=== PATIENT | female | born 1950 | race Caucasian/White ===

== ENCOUNTER → 2023-01-03 | Outpatient (CLI) | payer MEDICARE ==
--- NOTE | 2023-01-06 10:37 | MM ---
Reason for Exam: Screening (asymptomatic). Last mammogram was performed 24 year(s) and 11 month(s) ago. Patient History: Menarche at age 11. First Full-Term at age 21. Left ovary removed at age 47. Right ovary removed at age 47. Postmenopausal. 09/01/1998, Benign Excisional Biopsy on the left side. Risk Values: Hafsa 5 year model risk: 1.9%. NCI Lifetime model risk: 4.6%. Prior Study Comparison: 01/19/1998 Bilateral Special View Mammogram, [facility]. 02/24/1998 Left Diagnostic Mammogram, [facility]. 07/28/1998 Left Special View Mammogram, [facility]. Tissue Density: There are scattered fibroglandular densities. Findings: Analyzed By CAD. Pattern appears symmetrical. There is a 0.7 cm oval density with circumscribed margins in the lower inner aspect right breast 9 cm the nipple. Additional evaluation with ultrasound is recommended. There are some grouped calcifications in the outer right breast on the cranial caudal projection. Magnification view is recommended. No suspicious changes within the left breast No suspicious groups of microcalcifications, spiculated or lobular masses, architectural distortion or other secondary signs of malignancy are mammographically apparent. Overall Assessment: Incomplete: need additional imaging evaluation, BI-RAD 0 Management: Diagnostic Mammogram of the right breast. Diagnostic Breast Ultrasound of the right breast. A negative mammogram report should not preclude additional follow up of suspicious palpable abnormalities. Patient should continue monthly self breast exam. A clinical breast exam by your physician is recommended on an annual basis and results should be correlated with mammographic findings. Electronically signed and approved by: Raj Haque D.O. Radiologis
== END | disposition home or self-care (01) ==
LOC: RADMAMWWP 13:32
PROVIDERS: ATTEND Family Medicine
DX: Z12.31 Encounter for screening mammogram for malignant neoplasm of breast (principal); Z78.0 Asymptomatic menopausal state
CPT/HCPCS: 77063; 77067

== ENCOUNTER → 2023-01-10 | Outpatient (CLI) | payer MEDICARE ==
--- NOTE | 2023-01-10 14:36 | MM ---
Reason for Exam: Additional evaluation requested from abnormal screening. Last screening mammogram was performed less than 1 month ago. Patient History: Menarche at age 11. First Full-Term at age 21. Left ovary removed at age 47. Right ovary removed at age 47. Postmenopausal. Patient used Hormonal Contraceptives for 2 years. 09/01/1998, Benign Excisional Biopsy on the left side. Risk Values: Hafsa 5 year model risk: 1.9%. NCI Lifetime model risk: 4.6%. Prior Study Comparison: 01/19/1998 Bilateral Special View Mammogram, [facility]. 01/30/1998 Left Diagnostic Ultrasound, [facility]. 02/24/1998 Left Diagnostic Mammogram, [facility]. 07/28/1998 Left Special View Mammogram, [facility]. 01/03/2023 Bilateral MG 3D screening mammo w/cad, [facility]. Tissue Density: Right: There are scattered fibroglandular densities. Findings: Analyzed By CAD. A heterogeneous 2 to 3 mm group of calcifications in the middle to posterior depth outer upper aspect remains present on additional views. Overall Assessment: Suspicious, BI-RAD 4 Management: Stereotactic Core Biopsy of the right breast. . Results were given to the patient verbally at the time of exam. Patient should continue monthly self-breast exams. A clinical breast exam by your physician is recommended on an annual basis. This exam should not preclude additional follow-up of suspicious palpable abnormalities. Note on Hafsa scores and lifetime risk: 1. A Hafsa score greater than 3% is considered moderate risk. If this is the case, consider specialist referral to assess eligibility for a risk reducing agent. 2. If overall lifetime risk for the development of breast cancer is 20% or higher, the patient may qualify for future screening with alternating mammogram and breast MRI. Electronically signed and approved by: Simón Villa M.D.
--- NOTE | 2023-01-10 15:07 | USB ---
Reason for Exam: Additional evaluation requested from abnormal screening. Patient History: Menarche at age 11. First Full-Term at age 21. Left ovary removed at age 47. Right ovary removed at age 47. Postmenopausal. Patient used Hormonal Contraceptives for 2 years. 09/01/1998, Benign Excisional Biopsy on the left side. Risk Values: Hafsa 5 year model risk: 1.9%. NCI Lifetime model risk: 4.6%. Technique: Method: Targeted. Prior Study Comparison: 02/24/1998 Left Diagnostic Mammogram, [facility]. 07/28/1998 Left Special View Mammogram, [facility]. 01/03/2023 Bilateral MG 3D screening mammo w/cad, [facility]. Findings: The lower inner quadrant of the right breast, the axilla of the right breast and the retroareolar of the right breast were scanned. Targeted ultrasound shows a 8 x 7 x 8 mm oval hypoechoic lesion at 3:00 position 3 cm distance from nipple possibly could correspond to recent concern on mammogram but this is slightly farther from the nipple on mammogram. Would advise sampling with clip placement and follow-up mammogram to correlate. Overall Assessment: Suspicious, BI-RAD 4 Management: Ultrasound Core Biopsy of the right breast. Tissue sampling is advised. Results were given to the patient verbally at the time of exam. Electronically signed and approved by: Simón Villa M.D.
== END | disposition home or self-care (01) ==
LOC: RADMAMWWP 13:29
PROVIDERS: ATTEND Family Medicine
DX: R92.8 Other abnormal and inconclusive findings on diagnostic imaging of breast (principal); Z78.0 Asymptomatic menopausal state
CPT/HCPCS: 77065; 76642; G0279; 77061

== ENCOUNTER → 2023-02-14 | Outpatient (CLI) | payer MEDICARE ==
--- NOTE | 2023-02-17 14:02 | BD ---
EXAMINATION TYPE: Axial Bone Density DATE OF EXAM: 02/14/2023 CLINICAL HISTORY: 72 years old Female. ICD-10 CODE: Z13.820 Height: 62 Weight: 261.6 FRAX RISK QUESTIONS: Alcohol (3 or more units per day): no Family History (Parent hip fracture): no Glucocorticoids (More than 3mos): no (Ex: prednisone, prednisolone, methylprednisolone, dexamethasone, and hydrocortisone). History of Fracture in Adulthood: yes Secondary Osteoporosis: 1. Type 1 Diabetes: no 2. Hyperthyroidism: no 3. Menopause before 45: no 4. Malnutrition: no 5. Chronic liver disease: no Rheumatoid Arthritis: no Current Tobacco Use: no RISK FACTORS HISTORY OF: Surgery to Spine/Hip(right/left)/Wrist (right/left): no Family History of Osteoporosis: no Active: no Diet low in dairy products/other sources of calcium: yes Postmenopausal woman: yes Lost more than 2 inches in height since high school: no MEDICATIONS: Additional History: EXAM MEASUREMENTS: Bone mineral densitometry was performed using the [employer] System. Bone mineral density as measured about the Lumbar spine is: ----- L1-L4(G/cm2): 1.215 T Score Values are as follows: ----- L1: -.04 ----- L2: 0.2 ----- L3: 0.6 ----- L4: 0.6 ----- L1-L4: 0.3 Z Score Values are as follows: ----- L1: 0.2 ----- L2: 0.7 ----- L3: 1.1 ----- L4: 1.1 ----- L1-L4:0.9 Bone mineral density : baseline Bone mineral density about the R hip (g/cm2): 0.947 Bone mineral density about the L hip (g/cm2): 0.919 T Score values are as follows: -----R Neck: -1.2 -----L Neck: -2.2 -----R Total: -0.5 -----L Total: -0.7 Z Score values are as follows: -----R Neck: -0.1 -----L Neck: -1.1 -----R Total: 0.3 -----L Total: 0.1 Bone mineral density : baseline FRAX%s: The graph provided illustrates a 17.6% chance for a major osteoporotic fx and a 3.9% chance f or the hips probability for fx in 10 years time. IMPRESSION: Osteopenia (T Score between -2.5 and -1). There is slightly increased risk of fracture and the patient may be considered for treatment. Re-Screen 2-5 years. NOTE: T-SCORE=SD OF THE YOUNG ADULT MEAN.
== END | disposition home or self-care (01) ==
LOC: RADBDWWP 15:19
PROVIDERS: ATTEND Family Medicine
DX: Z13.820 Encounter for screening for osteoporosis (principal); M85.89 Other specified disorders of bone density and structure, multiple sites
CPT/HCPCS: 77080

== ENCOUNTER → 2023-02-28 | Day surgery (SDC) | payer MEDICARE ==
--- NOTE | 2023-03-07 14:15 | MM ---
Risk Values: Hafsa 5 year model risk: 1.9%. NCI Lifetime model risk: 4.6%. Prior Study Comparison: 07/28/1998 Left Special View Mammogram, [facility]. 01/03/2023 Bilateral MG 3D screening mammo w/cad, [facility]. 01/10/2023 Right MG 3D work up w/cad RT, [facility]. Pathology Description: Approach: Lateral to Medial Needle Type: Eviva Cores: 6 Skin Nicks: 1 Gauge: 9 The calcifications in question within the right breast were targeted by the undersigned. Procedure was performed by the undersigned. Informed consent was obtained and all of the patients questions were answered. The standard sterile technique was utilized and appropriate local anesthesia was obtained with 1% lidocaine. Mammotome probe was advanced and multiple core samples were obtained and sent to pathology for interpretation. Microclip marker was deployed at the site of biopsy. Post procedural mammogram demonstrates appropriate deployment of radiopaque clip marker. The patient tolerated the procedure well and left the department in stable condition. Pathology results are pending. Impression: Successful stereotactic core biopsy right breast. Pathology Results: Result: Benign, Fibrocystic change. RIGHT BREAST, STEREOTACTIC CORE BIOPSY: Fibrocystic change with columnar cell change, usual ductal hyperplasia, and focal fibroadenomatoid stromal hyperplasia with microcalcification. Current specimen negative for diagnostic in situ or invasive carcinoma. Overall Assessment: Benign Management: Diagnostic Mammogram of the right breast in 6 months. Electronically signed and approved by: Terry Gonzalez M.D. Radiologis
--- NOTE | 2023-03-07 14:19 | USB ---
Risk Values: Hafsa 5 year model risk: 2.4%. NCI Lifetime model risk: 5.8%. Prior Study Comparison: 07/28/1998 Left Special View Mammogram, [facility]. 01/03/2023 Bilateral MG 3D screening mammo w/cad, [facility]. 01/10/2023 Right MG 3D work up w/cad RT, [facility]. 01/10/2023 Right US breast workup limited RT, [facility]. Pathology Description: Location: 3 o'clock. Marker Left Behind. Needle Type: Celero Cores: 1 Gauge: 12 The procedure of ultrasound guided core biopsy was explained to the patient. Benefits, alternatives, and risks were discussed. An informed consent was then obtained. The patient was placed in supine positioning for imaging and for the procedure. The overlying skin was prepped and draped in usual sterile fashion. Lidocaine buffered with bicarbonate was used as anesthetic into the skin and subcutaneous tissue up to area of concern in the right 3:00 breast. Under ultrasound guidance, a 12-gauge vacuum assisted biopsy gun device was used to obtain one core sample. The lesion was no longer present. Following this, a biopsy clip was left in lesion. The patient tolerated the procedure well without any immediate complication. The patient was kept in the radiology department for short stay after the procedure and then discharged home in stable condition. Postprocedure mammogram: The patient was transferred to mammography for physician ordered post procedure mammogram for clip placement verification. Impression: Successful, uncomplicated ultrasound guided core biopsy of area of concern in the right 3:00 breast, full pathology results to follow. Pathology Results: Result: Benign, Fibrocystic change. RIGHT BREAST, DESIGNATED THREE O'CLOCK POSITION, ULTRASOUND GUIDED NEEDLE CORE BIOPSY: Proliferative fibrocystic change with fragmented ductal cyst having ductal ectasia, apocrine metaplasia, columnar cell change, and focal florid usual ductal hyperplasia. See note. Notes Per EMR: It is noted there is a 0.7cm oval circumscribed density within the right breast. Correlation with a concurrent right stereotactic biopsy having calcifications in [id number] is suggested. Correlation with imaging studies is suggested, as indicated. Overall Assessment: Benign Management: Diagnostic Mammogram of the right breast in 6 months. Electronically signed and approved by: Terry Gonzalez M.D. Radiologis
== END ==
LOC: RADMAMWWP 07:27
PROVIDERS: ATTEND Surgery
DX: N60.21 Fibroadenosis of right breast (principal)
CPT/HCPCS: 88305; 19081; 19083; A4648 ×2

== ENCOUNTER → 2023-02-28 | Day surgery (SDC) | payer MEDICARE | LOC: RADUSWWP 10:30 | PROVIDERS: ATTEND Surgery | DX: N60.41 Mammary duct ectasia of right breast (principal); N60.81 Other benign mammary dysplasias of right breast | CPT/HCPCS: 88305 ==

== ENCOUNTER 2024-02-05 20:20 | Emergency (ER) | payer MEDICARE ==
[2024-02-05 20:25] VITALS: RESP 18
[2024-02-05] MEDS: KETOROLAC 15 MG/ML 1 ML VIAL IM STA (20:46)
--- NOTE | 2024-02-05 20:46 | ED ---
Back Pain HPI - General Chief Complaint: Back Pain/Injury Stated Complaint: Slip and fall Time Seen by Provider: 02/05/24 20:25 Source: patient, EMS, RN notes reviewed Limitations: no limitations - History of Present Illness Initial Comments: 73-year-old female presents emergency department chief complaint of back pain. Patient states that she slept on her 's ER and states that she fell onto her knees falling forward drying her back. Patient complains of thoracic back pain, rib pain and mild right hip pain. Patient no head injury no loss conscious patient did receive fentanyl by EMS which helped the pain some. - Related Data Home Medications Medication Instructions Recorded Confirmed amLODIPine [Norvasc] 10 mg PO DAILY 02/12/23 03/21/23 Calcium Carbonate [Calcium] 600 mg PO DAILY 03/21/23 03/21/23 Cholecalciferol [Vitamin D3 (25 50 mcg PO DAILY 03/21/23 03/21/23 Mcg = 1000 Iu)] Allergies Allergy/AdvReac Type Severity Reaction Status Date / Time codeine Allergy Unknown Verified 02/05/24 20:26 erythromycin base Allergy Unknown Verified 02/05/24 20:26 Penicillins Allergy Unknown Verified 02/05/24 20:26 Sulfa (Sulfonamide Allergy Unknown Verified 02/05/24 20:26 Antibiotics) Review of Systems ROS Statement: Those systems with pertinent positive or pertinent negative responses have been documented in the HPI. ROS Other: All systems not noted in ROS Statement are negative. Past Medical History Past Medical History: Hypertension History of Any Multi-Drug Resistant Organisms: None Reported Past Surgical History: Cholecystectomy, Hysterectomy Past Psychological History: No Psychological Hx Reported Smoking Status: Never smoker Past Alcohol Use History: None Reported Past Drug Use History: None Reported General Exam Limitations: no limitations General appearance: alert, in no apparent distress Head exam: Present: atraumatic, normocephalic, normal inspection Eye exam: Present: normal appearance, PERRL, EOMI. Absent: scleral icterus, conjunctival injection, periorbital swelling Neck exam: Present: normal inspection, full ROM. Absent: tenderness, menin gismus, lymphadenopathy Respiratory exam: Present: normal lung sounds bilaterally. Absent: respiratory distress, wheezes, rales, rhonchi, stridor Cardiovascular Exam: Present: regular rate, normal rhythm, normal heart sounds. Absent: systolic murmur, diastolic murmur, rubs, gallop, clicks GI/Abdominal exam: Present: soft, normal bowel sounds. Absent: distended, tenderness, guarding, rebound, rigid Extremities exam: Present: normal inspection, full ROM, normal capillary refill. Absent: tenderness, pedal edema, joint swelling, calf tenderness Back exam: Present: full ROM, tenderness, paraspinal tenderness, vertebral tenderness (Thoracic) Neurological exam: Present: alert, oriented X3, CN II-XII intact, reflexes normal. Absent: motor sensory deficit Course Vital Signs 02/05/24 20:23 Temperature 97.8 F Pulse Rate 74 Respiratory 18 Rate Blood Pressure 145/73 O2 Sat by Pulse 94 L Oximetry Medical Decision Making - Medical Decision Making Was pt. sent in by a medical professional or institution (, PA, [employer], urgent care, hospital, or prison...) When possible be specific @ -No Did you speak to anyone other than the patient for history (EMS, parent, family, police, friend...)? What history was obtained from this source @ -No Did you review nursing and triage notes (agree or disagree)? Why? @ -I reviewed and agree with nursing and triage notes Were old charts reviewed (outside hosp., previous admission, EMS record, old EKG, old radiological studies, urgent care reports/EKG's, prison records)? Report findings @ -No old charts were reviewed Differential Diagnosis (chest pain, altered mental status, abdominal pain women, abdominal pain men, vaginal bleeding, weakness, fever, dyspnea, syncope, he adache, dizziness, GI bleed, back pain, seizure, CVA, palpatations, mental health, musculoskeletal)? @ -Fall, back fracture, strain, rib fracture EKG interpreted by me (3pts min.). @ -None X-rays interpreted by me (1pt min.). @ -Chest x-ray 1 view chest no acute cardiopulmonary process X-ray thoracic spine no acute fracture visualized X-ray pelvis no acute fracture CT interpreted by me (1pt min.). @ -None done U/S interpreted by me (1pt. min.). @ -None done What testing was considered but not performed or refused? (CT, X-rays, U/S, labs)? Why? @ -None What meds were considered but not given or refused? Why? @ -None Did you discuss the management of the patient with other professionals (professionals i.e. , PA, [employer], lab, RT, psych nurse, licensed social worker, professor of rhetoric, teacher, first officer and flight instructor, case picker)? Give summary @ -No Was smoking cessation discussed for >3mins.? @ -No Was critical care preformed (if so, how long)? @ -No Were there social determinants of health that impacted care today? How? (Homelessness, low income, unemployed, alcoholism, drug addiction, transportation, low edu. Level, literacy, decrease access to med. care, half-way, rehab)? @ -No Was there de-escalation of care discussed even if they declined (Discuss DNR or withdrawal of care, Hospice)? DNR status @ -No What co-morbidities impacted this encounter? (DM, HTN, Smoking, COPD, CAD, Cancer, CVA, ARF, Chemo, Hep., AIDS, mental health diagnosis, sleep apnea, morbid obesity)? @ -None Was patient admitted / discharged? Hospital course, mention meds given and route, prescriptions, significant lab abnormalities, going to OR and other pertinent info. @ -[Discharge patient presented for a fall. Patient has no acute fractures. Patient discharged in stable condition Undiagnosed new problem with uncertain prognosis? @ -No Drug Therapy requiring intensive monitoring for toxicity (Heparin, Nitro, Insulin, Cardizem)? @ -No Were any procedures done? @ -No Diagnosis/symptom? @Fall, back pain Acute, or Chronic, or Acute on Chronic? @ -Acute Uncomplicated (without systemic symptoms) or Complicated (systemic symptoms)? @ -Uncomplicated Side effects of treatment? @ -No Exacerbation, Progression, or Severe Exacerbation? @ -No Poses a threat to life or bodily function? How? (Chest pain, USA, SD, pneumonia, PE, COPD, DKA, ARF, appy, cholecystitis, CVA, Diverticulitis, Homicidal, Suicidal, threat to staff... and all critical care pts) @ -No Disposition Clinical Impression: Thoracic back pain, Fall Disposition: HOME SELF-CARE Condition: Stable Instructions (If sedation given, give patient instructions): Back Pain (ED) Additional Instructions: Please return to the Emergency Department if symptoms worsen or any other concerns. Is patient prescribed a controlled substance at d/c from ED?: No Referrals: Dieter Mann DO [Primary Care Provider] - 1-2 days Time of Disposition: 22:34
--- NOTE | 2024-02-05 21:38 | XR ---
EXAMINATION TYPE: XR chest 1V DATE OF EXAM: 02/05/2024 9:06 PM CLINICAL INDICATION:Female, 73 years old with history of shortness of breath COMPARISON: None TECHNIQUE: XR chest 1V Frontal view of the chest. FINDINGS: There is interstitial reticular and patchy airspace opacities or pronounced in the right lung. There is poor visualization of the bilateral sulci. The left appears to be obscured. The cardiac silhouette is enlarged. No acute osseous syndrome allergies. No pneumothorax. IMPRESSION: Cardiomegaly and mild pulmonary vascular congestion with patchy airspace disease. Findings may relate to congestive heart failure versus acute infectious/inflammatory.
--- NOTE | 2024-02-05 22:10 | XR ---
EXAMINATION TYPE: XR pelvis AP view DATE OF EXAM: 02/05/2024 9:06 PM CLINICAL INDICATION:Female, 73 years old with history of fall pain; [facility] COMPARISON: None TECHNIQUE: XR pelvis AP view, examined in a single projection. FINDINGS: No gross evidence for acute fracture on exam. There is poor penetration due to patient's case dy habitus making evaluation. There is degenerative changes of the left greater trochanter with some cortical irregularity appreciated. Degenerative changes of bony pelvis and bilateral hips with no leandro dence for dislocation. IMPRESSION: Degenerative changes of the bilateral hips and bony pelvis with no definitive evidence for fracture o n this limited evaluation. Correlate for point tenderness along the left hip. If clinical concern for fracture persists consider further characterization with CT pelvis.
--- NOTE | 2024-02-05 22:16 | XR ---
EXAMINATION TYPE: XR thoracic spine 2V DATE OF EXAM: 02/05/2024 9:06 PM CLINICAL INDICATION:Female, 73 years old with history of fall pain. COMPARISON: Chest radiograph from the same day TECHNIQUE: XR thoracic spine 2V views of the spine in Frontal and lateral projections. FINDINGS: No evidence of acute fracture. There is no evidence of disk space narrowing or loss of vertebral bod y height in the visualized thoracic spine. There is normal alignment of the visualized thoracic verte bral bodies. There is poor visualization of the upper thoracic spine and lower cervical spine. IMPRESSION: 1. No acute osseous pathology. Please see chest radiograph from the same day for further details. 2. Poor visualization of the upper thoracic and lower cervical spine. Correlate with any point tender ness. If clinical concern for fracture persists consider CT spine for further evaluation.
[2024-02-05] MEDS: LIDOCAINE 4% PATCH TOPICAL ONE (23:06)
[2024-02-05 23:29] VITALS: BP 140/71; PULSE 75; TEMP 97.9
== END 2024-02-05 23:29 | disposition home or self-care (01) ==
LOC: EC 20:20
DX: M54.6 Pain in thoracic spine (principal); Z88.2 Allergy status to sulfonamides; Z88.5 Allergy status to narcotic agent; Z88.1 Allergy status to other antibiotic agents; Z88.0 Allergy status to penicillin; W01.0XXA Fall on same level from slipping, tripping and stumbling without subsequent striking against object, initial encounter
CPT/HCPCS: 72070; 72170; 71045; 99284; 96372; J1885

== ENCOUNTER 2024-05-02 14:14 | Emergency (ER) | payer MEDICARE ==
--- NOTE | 2024-05-02 14:50 | ED ---
Fall HPI - General Source: patient, RN notes reviewed Mode of arrival: wheelchair Limitations: physical limitation - History of Present Illness MD Complaint: fall Onset/Timin Time: 13:00 Fall From: standing When Fall Occurred: 1-3 hours [employer] Fall Witnessed: yes, by family Place Fall Occurred: home Loss of Consciousness: none Prolonged Down Time?: no Symptoms Prior to Fall: none Location: head, pelvis Location - Extremities: Left: Hand Severity scale (1-10): 8 Context: tripped/slipped Associated Symptoms: other (Transient dizziness after fall) <Zach Morse - Last Filed: 05/02/24 14:46> <Luis Villegas - Last Filed: 05/02/24 20:26> - General Stated Complaint: Fall- R hand/hip injury Time Seen by Provider: 05/02/24 14:28 - History of Present Illness Initial Comments: Quick note: This is a 74-year-old female presenting for a trip and fall over a box at 1 PM today. Patient states she accidentally tripped over a box falling forward and striking the right side of her head, right hand and right hip onto a tile floor with associated pain. Patient endorses transient dizziness following the fall. Patient denies loss of consciousness, neck pain, visual changes, N/V, altered mental status, altered LOC. Patient states she suffered a cut near her right eye and is having right hand pain (10 out of 10) and right hip pain (8 out of 10). Patient endorses use of Tylenol prior to ER arrival. (Zach Morse) Agree with above. Patient is not on blood thinners. (Luis Villegas) - Related Data Home Medications Medication Instructions Recorded Confirmed amLODIPine [Norvasc] 10 mg PO DAILY 02/12/23 03/21/23 Calcium Carbonate [Calcium] 600 mg PO DAILY 03/21/23 03/21/23 Cholecalciferol [Vitamin D3 (25 50 mcg PO DAILY 03/21/23 03/21/23 Mcg = 1000 Iu)] Allergies Allergy/AdvReac Type Severity Reaction Status Date / Time codeine Allergy Unknown Verified 05/02/24 15:56 erythromycin base Allergy Unknown Verified 05/02/24 15:56 Penicillins Allergy Unknown Verified 05/02/24 15:56 Sulfa (Sulfonamide Allergy Unknown Verified 05/02/24 15:56 Antibiotics) Review of Systems ROS Other: All systems not noted in ROS Statement are negative. <Zach Morse - Last Filed: 05/02/24 14:46> ROS Other: All systems not noted in ROS Statement are negative. <Luis Villegas - Last Filed: 05/02/24 20:26> ROS Statement: Those systems with pertinent positive or pertinent negative responses have been documented in the HPI. Past Medical History Past Medical History: Hypertension History of Any Multi-Drug Resistant Organisms: None Reported Past Surgical History: Cholecystectomy, Hysterectomy Past Psychological History: No Psychological Hx Reported Smoking Status: Never smoker Past Alcohol Use History: None Reported Past Drug Use History: None Reported <Zach Morse - Last Filed: 05/02/24 14:46> General Exam <Zach Morse - Last Filed: 05/02/24 14:46> General appearance: alert, in no apparent distress Head exam: Present: normocephalic Expanded Head exam: Present: abrasion (Small skin avulsion. The right eyebrow) Eye exam: Present: PERRL, EOMI, periorbital swelling. Absent: periorbital tenderness Neck exam: Present: normal inspection, full ROM. Absent: meningismus Respiratory exam: Absent: respiratory distress Cardiovascular Exam: Present: regular rate Right Hand Wrist exam: Present: full ROM, tenderness, swelling, ecchymosis Neurological exam: Present: alert, oriented X3 Psychiatric exam: Present: normal affect, normal mood Skin exam: Present: warm, dry <Luis Villegas - Last Filed: 05/02/24 20:26> - General Exam Comments Initial Comments: Visual Physical Exam Vital signs reviewed General: Well-appearing, nontoxic, no acute distress. Head: Normocephalic vertical laceration with dried blood noted on lateral aspect of right eye Eyes: PERRLA, EOMI ENT: Airway patent Chest: Nonlabored breathing Skin: No visual rash, normal skin tone Neuro: Alert and oriented 3 Musculoskeletal: No gross abnormalities (Zach Morse) Course Vital Signs 05/02/24 05/02/24 15:56 17:18 Temperature 97.9 F 97.9 F Pulse Rate 78 77 Respiratory 18 18 Rate Blood Pressure 146/75 148/74 O2 Sat by Pulse 98 97 Oximetry Medical Decision Making <Zach Morse - Last Filed: 05/02/24 14:46> <Luis Villegas - Last Filed: 05/02/24 20:26> - Medical Decision Making I completed the quick note portion of this chart signed LUIS MANUEL Kim (Zach Morse) Was pt. sent in by a medical professional or institution ([facility], [employer], urgent care, hospital, or snf...) When possible be specific @ -No Did you speak to anyone other than the patient for history (EMS, parent, family, police, friend...)? What history was obtained from this source @ -No Did you review nursing and triage notes (agree or disagree)? Why? @ -I reviewed and agree with nursing and triage notes Were old charts reviewed (outside hosp., previous admission, EMS record, old EKG, old radiological studies, urgent care reports/EKG's, snf records)? Report findings @ -No old charts were reviewed Differential Diagnosis (chest pain, altered mental status, abdominal pain women, abdominal pain men, vaginal bleeding, weakness, fever, dyspnea, syncope, headache, dizziness, GI bleed, back pain, seizure, CVA, palpatations, mental health, musculoskeletal)? @ -Differential includes uncomplicated head injury, concussion, fracture, hemorrhage, this is not an all-inclusive list EKG interpreted by me (3pts min.). @ -As above X-rays interpreted by me (1pt min.). @ -Hand x-ray shows no acute osseous pathology. Multifocal osteoarthrosis throughout the joints of the hand. Hip x-ray shows no evidence for acute process. Mild hip osteoarthrosis CT interpreted by me (1pt min.). @ -CT negative for acute intracranial process. Nonspecific white matter changes likely secondary to chronic small vessel ischemic disease. No evidence of cervical spine fracture. Mild multilevel degenerative disc disease. Left supraclavicular prominent lymph node measuring up to 8 mm in short axis U/S interpreted by me (1pt. min.). @ -None done What testing was considered but not performed or refused? (CT, X-rays, U/S, labs)? Why? @ -None What meds were considered but not given or refused? Why? @ -None Did you discuss the management of the patient with other professionals (professionals i.e. , PA, [employer], lab, RT, psych nurse, social service assistant, lead technical writer, teacher, chief communications officer, case packer)? Give summary @ -No Was smoking cessation discussed for >3mins.? @ -No Was critical care preformed (if so, how long)? @ -No Were there social determinants of health that impacted care today? How? (Homelessness, low income, unemployed, alcoholism, drug addiction, transportation, low edu. Level, literacy, decrease access to med. care, [facility], rehab)? @ -No Was there de-escalation of care discussed even if they declined (Discuss DNR or withdrawal of care, Hospice)? DNR status @ -No What co-morbidities impacted this encounter? (DM, HTN, Smoking, COPD, CAD, Cancer, CVA, ARF, Chemo, Hep., AIDS, mental health diagnosis, sleep apnea, morbid obesity)? @ -None Was patient admitted / discharged? Hospital course, mention meds given and route, prescriptions, significant lab abnormalities, going to OR and other pertinent info. @ -74-year-old female presenting for evaluation post trip and fall at home. Positive head injury, no loss of consciousness or blood thinners. Admits to right hand and right hip pain. CT shows no acute intracranial process or cervical spine fracture. No acute osseous pathology seen on x-rays of the hip or hand. Patient was given Tylenol for pain. She does have a small skin avulsion near the right eyebrow. She is educated on today's findings and supportive management at home. Discharged. Follow-up with PCP. Report back to ER with any new or worsening symptoms. Discussed return parameters and answered all questions. Patient conveyed verbal understanding and agreed to the plan. I discussed this case in detail with my attending Dr. Kim Undiagnosed new problem with uncertain prognosis? @ -No Drug Therapy requiring intensive monitoring for toxicity (Heparin, Nitro, Insulin, Cardizem)? @ -No Were any procedures done? @ -No Diagnosis/symptom? @ -Fall, head injury Acute, or Chronic, or Acute on Chronic? @ -Acute Uncomplicated (without systemic symptoms) or Complicated (systemic symptoms)? @ -uncomplicated Side effects of treatment? @ -No Exacerbation, Progression, or Severe Exacerbation? @ -No Poses a threat to life or bodily function? How? (Chest pain, [place], [place], pneumonia, PE, COPD, DKA, ARF, appy, cholecystitis, CVA, Diverticulitis, Homicidal, Suicidal, threat to staff... and all critical care pts) @ -Low likelihood (Luis Villegas) Disposition <Zach Morse - Last Filed: 05/02/24 14:46> Is patient prescribed a controlled substance at d/c from ED?: No Time of Disposition: 16:53 <Luis Villegas - Last Filed: 05/02/24 20:26> Clinical Impression: Fall, Head injury Disposition: HOME SELF-CARE Condition: Good Instructions (If sedation given, give patient instructions): Head Injury (ED) Additional Instructions: Follow-up with PCP. Report back to ER with any new or worsening symptoms. Referrals: Alejandro Mann MD [REFERRING] - 1-2 days
[2024-05-02 16:01] VITALS: RESP 18; TEMP 97.9
--- NOTE | 2024-05-02 16:14 | CT ---
EXAMINATION TYPE: CT brain cspine wo con CT DLP: 1347.5 mGycm, Automated exposure control for dose reduction was used. DATE OF EXAM: 05/02/2024 3:40 PM COMPARISON: None. CLINICAL INDICATION: Female, 74 years old with history of Fall onto right side, pain; Fall onto rt si de. TECHNIQUE: Brain: Multiple axial CT images of the brain were obtained without IV contrast. Cspine: Axial CT images from the skull base to the inferior aspect of T2 we obtained without intraven ous contrast. Coronal and sagittal reformatted images were also reviewed. . FINDINGS: Brain: Extra-axial spaces: No abnormal extra-axial fluid collections. Scattered dural calcifications are pre sent. Ventricular system: Within normal limits Cerebral parenchyma: No acute intraparenchymal hemorrhage or mass effect. The moran-white junction is well differentiated. Cerebellum: Unremarkable. Mass effect: No evidence of midline shift. Intracranial vasculature: unremarkable Soft tissues: Normal. Calvarium/osseous structures: No depressed skull fracture. Paranasal sinuses and mastoid air cells: Clear. Visualized orbits: Orbital contents are intact. Cervical spine: Fracture: None. Osseous structures: Multilevel degenerative disc disease changes with endplate spurring and disc oste ophyte complex's. Vertebral alignment: Within normal limits. Spinal canal/Neural Foramina: No evidence of significant spinal canal narrowing. No evidence for sign ificant neural foraminal stenosis. Neck soft tissues: Prevertebral soft tissues are within normal limits. Other: The airway is patent. The lung apices are clear. Prominent left supraclavicular lymph node lex suring 3 mm in short axis. IMPRESSION: 1. No acute intracranial process. 2. Nonspecific white matter changes, likely secondary to chronic small vessel ischemic disease. 3. No evidence of cervical spine fracture. 4. Mild multilevel degenerative disc disease. 5. Left supraclavicular prominent lymph node measuring up to 8 mm in short axis. [facility], , 05/02/2024 4:12 PM
--- NOTE | 2024-05-02 16:19 | XR ---
EXAMINATION TYPE: XR hand complete RT DATE OF EXAM: 05/02/2024 3:42 PM CLINICAL INDICATION: Female, 74 years old with history of Fall onto right hand with significant pain; [facility] COMPARISON: None TECHNIQUE: XR hand complete RT Frontal, lateral and oblique views were obtained. FINDINGS: Normal alignment of the visualized joints. No acute osseous pathology is identified. No e vidence of soft tissue swelling. Multifocal degeneration changes with joint space narrowing and osteo phyte formation. IMPRESSION: 1. No acute osseous pathology. 2. Multifocal osteoarthrosis throughout the joints of the hand. [facility], , 05/02/2024 4:17 PM
--- NOTE | 2024-05-02 16:20 | XR ---
EXAMINATION TYPE: XR Hip Complete RT DATE OF EXAM: 05/02/2024 3:42 PM CLINICAL INDICATION: Female, 74 years old with history of Fall landing on right hip with pain; [facility] COMPARISON: None 02/05/2024 TECHNIQUE: XR Hip Complete RT; hip was examined in the frontal and lateral projections and a AP pelvi s. FINDINGS: No evidence for acute process, joint dislocation or significant soft tissue swelling. Osteo phyte formation of the superior acetabulum of the hip. There is mild joint space narrowing. IMPRESSION: 1. No evidence for acute process. 2. Mild hip osteoarthrosis. [facility], Workstation: [id number], 05/02/2024 4:17 PM
[2024-05-02] MEDS: ACETAMINOPHEN TAB 500 MG TAB PO STA (16:51)
[2024-05-02 17:20] VITALS: BP 148/74; PULSE 77
== END 2024-05-02 17:20 | disposition home or self-care (01) ==
LOC: EC 14:14
CPT/HCPCS: 70450; 72125; 73502; 99284